=== PATIENT | female | born 1970 | race Caucasian/White ===

== ENCOUNTER 2017-06-06 16:27 | Emergency (ER) | payer OTHER ==
[2017-06-06 16:37] VITALS: BP 144/90; PULSE 78; TEMP 97.9; BMI 27.3
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
[2017-06-06] MEDS ORDERED: KETOROLAC TROMETHAMINE 60 MG/2 ML VIAL IM ONE (17:59)
[2017-06-06] MEDS ORDERED: KETOROLAC TROMETHAMINE 60 MG/2 ML VIAL ONE (18:07)
== END 2017-06-06 19:02 | disposition home or self-care (01) ==
LOC: JERFT 16:27
CPT/HCPCS: 72100-TC; 99281-25

== ENCOUNTER 2017-10-13 13:31 | Emergency (ER) | payer OTHER ==
[2017-10-13 14:06] VITALS: BMI 26.4
--- NOTE | 2017-10-13 15:47 | PDOC ---
History of Present Illness - General Chief Complaint: Pain Stated Complaint: ABD PAIN Time Seen by Provider: 10/13/17 15:42 - History of Present Illness Initial Comments: 10/13/17 15:57 The patient is a 47 year old female who denies any significant PMH who presents for evaluation of epigastric abdominal pain. The patient reports onset of burning epigastric abdominal pain beginning earlier this morning associated with nausea. She states that eating worsens her pain and denies any relieving factors. She denies similar symptoms in the past. She otherwise denies fevers , chills, SOB, chest pain, vomiting, or changes with urination or bowel movements. Past History - Past Medical History Allergies/Adverse Reactions: Allergies Allergy/AdvReac Type Severity Reaction Status Date / Time No Known Allergies Allergy Verified 10/13/17 14:02 Home Medications: Ambulatory Orders Cyclobenzaprine HCl [Flexeril 10 mg] 10 mg PO BID PRN #20 tablet 06/06/17 Naproxen [Naprosyn] 500 mg PO BID #20 tablet 06/06/17 Famotidine [Pepcid -] 40 mg PO DAILY #7 tablet 10/13/17 COPD: No DVT: No - Suicide/Smoking/Psychosocial Hx Smoking History: Never smoked Information on smoking cessation initiated: No Hx Alcohol Use: No Drug/Substance Use Hx: No Substance Use Type: None Review of Systems - Review of Systems Comments:: 10/13/17 15:59 Constitutional: No fevers, chills, fatigue, malaise HEENT: No Rhinorrhea, nasal congestion, visual changes Cardiovascular: No chest pain, syncope, palpitations, lightheadedness Respiratory: No Cough, SOB, Hemoptysis, Gastrointestinal: Abdominal pain, Nausea. No Vomiting, Constipation, Diarrhea, Melena Genitourinary: No Dysuria, Frequency, Urgency, Hesitancy, Hematuria, Flank pain Musculoskeletal: No Myalgia, arthralgia Skin: No rashes, itching, bruising, pallor Neurologic: No Headache, Dizziness, Numbness, Weakness, or Tingling Psychiatric: No Hallucinations. No SI or HI *Physical Exam - Vital Signs Last Vital Signs Temp Pulse Resp BP Pulse Ox 98.6 F 81 18 131/79 100 10/13/17 14:02 10/13/17 14:02 10/13/17 14:02 10/13/17 14:02 10/13/17 14:02 - Physical Exam Comments: 10/13/17 16:00 General Appearance: Nourished. No Apparent Distress HEENT: EOMI, COLLINS. No Pharyngeal Erythema, Tonsillar Exudate, Tonsillar Erythema Neck: No Cervical Lymphadenopathy Respiratory/Chest: Lungs Clear, Normal Breath Sounds. No Crackles, Rales, Rhonchi, Wheezing Cardiovascular: Regular Rhythm, Regular Rate. No Murmur, Gallops, Rubs Gastrointestinal/Abdominal: Normal Bowel Sounds, Soft. Mild tenderness to palpation to deep palpation in the epigastric region. No Guarding, Rebound, Musculoskeletal: No CVA Tenderness Extremity: Normal Capillary Refill Integumentary: Normal Color, Dry, Warm Neurologic: Fully Oriented, Alert, Normal Mood/Affect, Normal Response, ED Treatment Course - LABORATORY CBC & Chemistry Diagram: 10/13/17 16:30 10/13/17 16:30 Medical Decision Making - Medical Decision Making 10/13/17 16:00 The patient is a 47 year old female who denies any significant PMH who presents for evaluation of epigastric abdominal pain. Differential includes but is not limited to: Gastritis, GERD, Pancreatitis, Cholecysitis, infectious, metabolic derangement. Given the patient's history and physical exam, it is likely the patient's symptoms are due to a gastritis. However, we will obtain a cbc, cmp, lipase, ua, urine preg, and gallbladder US to evaluate further for possible etiologies. We will treat in the meantime with iv fluids, pepcid, zofran, maalox. We will continue to monitor and reassess. 10/13/17 18:20 cbc, ua, urine preg is unremarkable. Gallbladder US demonstrates some gallbladder wall thickening possibly due to gallbladder contraction without any gallstones noted on the exam as read by our radiologist. CMP and Lipase have hemolized and will be redrawn. The patient reports some improvement in her symptoms with treatment. *DC/Admit/Observation/Transfer Diagnosis at time of Disposition: Abdominal pain Qualifiers: Abdominal location: unspecified location Qualified Code(s): R10.9 - Unspecified abdominal pain - Discharge Dispostion Admit: No - Prescriptions Prescriptions: Famotidine [Pepcid -] 40 mg PO DAILY #7 tablet - Referrals Referrals: Efren Boswell MD [Staff Physician] - - Patient Instructions Printed Discharge Instructions: DI for Gastritis Additional Instructions: Please return to the ER if you experience concerning or worsening symptoms including worsening abdominal pain, fevers, vomiting, or if you feel ill. Your lab results were normal here in the ER. Your Gallbladder US was unremarkable. We have sent a prescription for an anti-acid mediation to your pharmacy that you should take as directed. It is EXTREMELY important that you call to schedule a follow up appointment with our GI specialist Dr. Boswell within 2-3 days to discuss your ER visit and further management of your symptoms. - Post Discharge Activity
[2017-10-13] MEDS ORDERED: MAG HYDROX/AL HYDROX/SIMETH 30 ML UNIT-DOSE CUP PO ONE (15:56)
[2017-10-13] MEDS ORDERED: FAMOTIDINE 20 MG/50 ML IVPB 20 MG/50 ML MG IVPB ONE ×2 (15:56→16:13)
[2017-10-13] MEDS ORDERED: ONDANSETRON 4 MG/2 ML VIAL IVPUSH ONE (15:56)
[2017-10-13] MEDS ORDERED: SODIUM CHLORIDE 1,000 ML IV STA (15:56)
[2017-10-13] MEDS ORDERED: MAG HYDROX/AL HYDROX/SIMETH 30 ML UNIT-DOSE CUP ONE (16:12)
[2017-10-13] MEDS ORDERED: ONDANSETRON 4 MG/2 ML VIAL ONE (16:12)
--- NOTE | 2017-10-13 16:32 | PDOC ---
Attending Attestation - Resident Resident Name: Jesus Alberto Antoine - ED Attending Attestation I have performed the following: I have examined & evaluated the patient, The case was reviewed & discussed with the resident, I agree w/resident's findings & plan, Exceptions are as noted - Medical Decision Making 10/13/17 16:31 47-year-old female with no significant past medical history presents emergency Department with epigastric pain since this morning. Vitals unremarkable. Differential includes but is not limited to pancreatitis versus cholecystitis versus gastritis.Plan: -labs -UA -UPT -pain control -antiemetics -US -reassess <Nassef,Yomna - Last Filed: 10/13/17 16:30> - HPI HPI: 10/13/17 17:16 Pt is a 47 yo F with no PMHx who presents to the ED with with epigastric pain since this morning. Patient reports gradual onset of burning epigastric pain, 8/ 10 in severity associated with nausea. Patient reports eating exacerbates her pain. Patient denies any previous episodes in the past and presents to the ED for further evaluation. Denies CP, SOB, f/c. diarrhea, weakness/numbness, headache. PCP: None - Physicial Exam PE: 10/13/17 17:16 GENERAL: Awake, alert, and fully oriented, in no acute distress HEAD: No signs of trauma EYES: PERRLA, EOMI, sclera anicteric, conjunctiva clear ENT: Auricles normal inspection, hearing grossly normal, nares patent, oropharynx clear without exudates. Moist mucosa NECK: Normal ROM, supple, no lymphadenopathy, JVD, or masses LUNGS: Breath sounds equal, clear to auscultation bilaterally. No wheezes, and no crackles HEART: Regular rate and rhythm, normal S1 and S2, no murmurs, rubs or gallops ABDOMEN: Soft, +epigastric ttp, negtatve mendez sign, normoactive bowel sounds. No guarding, no rebound. No masses EXTREMITIES: Normal range of motion, no edema. No clubbing or cyanosis. No cords, erythema, or tenderness BACK: No midline spinal tenderness in cervical/thoracic/lumbar region NEUROLOGICAL: Normal speech, cranial nerves intact, negative pronator drift, 5/ 5 strength in all 4 extremities, normal sensation to light touch in all 4 extremities, normal cerebellar exam, normal gait, normal reflexes and tone SKIN: Warm, Dry, normal turgor, no rashes or lesions noted. - Medical Decision Making 10/13/17 17:16 Documentation prepared by Iesha Granda, acting as medical billing service for Esther Pratt MD <Iesha Granda - Last Filed: 10/13/17 17:16>
[2017-10-13 16:36] LABS: BASO % 1.1 % (0-2.0); EOS % 0.8 % (0-4.5); HEMOGLOBIN 15.3 GM/dL (10.7-15.3); LYMPH % 30.5 % (8-40); MCH 31.7 pg (25.7-33.7); MCHC 35.7 g/dl (32.0-36.0); MEAN CELL VOLUME 88.9 fl (80-96); MONO % 7.5 % (3.8-10.2); NEUT % 60.1 % (42.8-82.8); PLATELET COUNT 271 K/MM3 (134-434); RBC 4.84 M/mm3 (3.60-5.2); RDW 12.7 % (11.6-15.6); WHITE BLOOD COUNT 8.8 K/mm3 (4.0-10.0)
[2017-10-13 16:53] LABS: HCG,QUALITATIVE URINE NEGATIVE
[2017-10-13 16:55] LABS: URINE APPEARANCE CLEAR; URINE BILIRUBIN NEGATIVE (<2.0 mg/dL); URINE COLOR LTYELLOW; URINE GLUCOSE (UA) NEGATIVE (NEGATIVE); URINE KETONE NEGATIVE (NEGATIVE); URINE LEUK ESTERASE NEGATIVE (NEGATIVE); URINE NITRITE NEGATIVE (NEGATIVE); URINE PROTEIN NEGATIVE (NEGATIVE); URINE UROBILINOGEN NEGATIVE mg/dL (0.2-1.0)
[2017-10-13 17:14] LABS: EPI CELLS RARE /HPF (FEW)
[2017-10-13 19:33] LABS: ANION GAP 6 (8-16); BLOOD UREA NITROGEN 7 mg/dL (7-18); CALCIUM 8.8 mg/dL (8.5-10.1); CHLORIDE 105 mmol/L (98-107); CO2 28 mmol/L (21-32); CREATININE 0.6 mg/dL (0.55-1.02); GLUCOSE,RANDOM 112 mg/dL (74-106); LIPASE 118 U/L (73-393); SGPT/ALT 33 U/L (12-78); SODIUM 139 mmol/L (136-145)
[2017-10-13 19:35] LABS: ALK PHOS 155 U/L (45-117); BILIRUBIN,TOTAL 0.4 mg/dL (0.2-1.0); TOT PROT 8.1 g/dl (6.4-8.2)
[2017-10-13 19:51] LABS: POTASSIUM 4.1 mmol/L (3.5-5.1); SGOT/AST 23 U/L (15-37)
[2017-10-13 20:27] VITALS: TEMP 98.1
--- NOTE | 2017-10-13 20:43 | PDOC ---
*Physical Exam - Vital Signs Last Vital Signs Temp Pulse Resp BP Pulse Ox 98.1 F 78 20 126/72 100 10/13/17 19:30 10/13/17 19:30 10/13/17 19:30 10/13/17 19:30 10/13/17 19:30 ED Treatment Course - LABORATORY CBC & Chemistry Diagram: 10/13/17 16:30 10/13/17 18:36 - ADDITIONAL ORDERS Additional order review: Laboratory Results 10/13/17 10/13/17 10/13/17 18:36 16:40 16:30 Sodium 139 Cancelled Potassium 4.1 Cancelled Chloride 105 Cancelled Carbon Dioxide 28 Cancelled Anion Gap 6 L Cancelled BUN 7 Cancelled Creatinine 0.6 Cancelled Creat Clearance w eGFR > 60 Cancelled Random Glucose 112 H Cancelled Calcium 8.8 Cancelled Total Bilirubin 0.4 Cancelled AST 23 Cancelled ALT 33 Cancelled Alkaline Phosphatase 155 H Cancelled Total Protein 8.1 Cancelled Albumin 4.0 Cancelled Lipase 118 Cancelled Urine Color Ltyellow Urine Appearance Clear Urine pH 6.0 Ur Specific [place] 1.011 Urine Protein Negative Urine Glucose (UA) Negative Urine Ketones Negative Urine Blood 1+ H Urine Nitrite Negative Urine Bilirubin Negative Urine Urobilinogen Negative Ur Leukocyte Esterase Negative Urine WBC (Auto) 1 Urine RBC (Auto) 1 Ur Epithelial Cells Rare Urine HCG, Qual Negative 10/13/17 16:30 RBC 4.84 MCV 88.9 MCHC 35.7 RDW 12.7 MPV 8.0 Neutrophils % 60.1 Lymphocytes % 30.5 Monocytes % 7.5 Eosinophils % 0.8 Basophils % 1.1 - Medications Given in the ED: ED Medications Discontinued Medications Generic Name Dose Route Start Last Admin Trade Name Freq PRN Reason Stop Dose Admin Al Hydroxide/Mg Hydroxide 30 ml 10/13/17 15:56 10/13/17 16:30 Mylanta Oral Suspension - PO 10/13/17 15:57 30 ml ONCE ONE Administration Famotidine/Sodium Chloride 20 mg in 50 mls @ 100 mls/hr 10/13/17 15:56 16:30 Pepcid 20 Mg Premixed Ivpb - IVPB 10/13/17 16:25 100 mls/hr ONCE ONE Administration Sodium Chloride 1,000 mls @ 1,000 mls/hr 10/13/17 15:56 10/13/17 16:30 Normal Saline - IV 10/13/17 16:55 1,000 mls/hr ASDIR STA Administration Ondansetron HCl 4 mg 10/13/17 15:56 10/13/17 16:30 Zofran Injection IVPUSH 10/13/17 15:57 4 mg ONCE ONE Administration *DC/Admit/Observation/Transfer Diagnosis at time of Disposition: Abdominal pain Qualifiers: Abdominal location: unspecified location Qualified Code(s): R10.9 - Unspecified abdominal pain - Discharge Dispostion Disposition: HOME Condition at time of disposition: Improved Admit: No - Prescriptions Prescriptions: Famotidine [Pepcid -] 40 mg PO DAILY #7 tablet - Referrals Referrals: Efren Boswell MD [Staff Physician] - - Patient Instructions Printed Discharge Instructions: DI for Gastritis Additional Instructions: Please return to the ER if you experience concerning or worsening symptoms including worsening abdominal pain, fevers, vomiting, or if you feel ill. Your lab results were normal here in the ER. Your Gallbladder US was unremarkable. We have sent a prescription for an anti-acid mediation to your pharmacy that you should take as directed. It is EXTREMELY important that you call to schedule a follow up appointment with our GI specialist Dr. Boswell within 2-3 days to discuss your ER visit and further management of your symptoms. Print Language: LAO - Post Discharge Activity
[2017-10-13 21:02] VITALS: BP 128/76; PULSE 82
--- NOTE | 2017-10-15 10:35 | EKG ---
Test Reason : Blood Pressure : / mmHG Vent. Rate : 108 BPM Atrial Rate : 108 BPM P-R Int : 160 ms QRS Dur : 078 ms QT Int : 354 ms P-R-T Axes : 047 043 011 degrees QTc Int : 474 ms SINUS TACHYCARDIA NONSPECIFIC T WAVE ABNORMALITY ABNORMAL ECG WHEN COMPARED WITH ECG OF 25-NOV-2004 16:54, NONSPECIFIC T WAVE ABNORMALITY, WORSE IN ANTERIOR LEADS QT HAS LENGTHENED Confirmed by MARINA DOMINGO, RUTH ANN ([id number]) on 10/15/2017 10:35:21 AM Referred By: Confirmed By:RUTH ANN GRAY MD
== END 2017-10-13 21:01 | disposition home or self-care (01) ==
LOC: JER 13:31
PROC: 3E033GC Introduction of Other Therapeutic Substance into Peripheral Vein, Percutaneous Approach (ICD-10-PCS; principal; 2017-10-13)
PROC: 3E033GC Introduction of Other Therapeutic Substance into Peripheral Vein, Percutaneous Approach (ICD-10-PCS; 2017-10-13)
DX: K29.70 Gastritis, unspecified, without bleeding (principal)
CPT/HCPCS: 36415; 76705-TC; 80053; 81003; 81015; 83690; 84703; 85025; 93005; 93010; 96365; 96375; 99283-25; J7030

== ENCOUNTER 2019-12-27 08:33 | Day surgery (SDC) | payer OTHER ==
[2019-12-20 14:25] VITALS: BMI 23.3
--- NOTE | 2019-12-27 08:52 | HP ---
History & Physical Update - History History: No Change - Physical Physical: No Change - Assessment Assessment: No Change - Plan Plan: No Change
[2019-12-27] MEDS ORDERED: MIDAZOLAM HCL 2 MG/2 ML SINGLE DOSE VIAL ONE (09:58)
[2019-12-27] MEDS ORDERED: ROPIVACAINE HCL 0.5% 30ML VIAL ONE ×2 (09:58→10:01)
[2019-12-27] MEDS ORDERED: EPINEPHrine/PF 1 MG/1 ML (1:1,000) AMPULE ONE (10:01)
[2019-12-27] MEDS ORDERED: MORPHINE 5 MG/10 ML AMP - FOR COMPOUNDING USE ONLY ONE (10:03)
[2019-12-27] MEDS ORDERED: BUPIVACAINE HCL/PF 2.5 MG/ML - 30 ML VIAL IJ ONE (10:12)
[2019-12-27] MEDS ORDERED: PROPOFOL 20 ML ONE (10:34)
[2019-12-27] MEDS ORDERED: ONDANSETRON 4 MG/2 ML VIAL ONE (10:36)
[2019-12-27] MEDS ORDERED: KETOROLAC TROMETHAMINE 30 MG/1 ML VIAL ONE (10:36)
[2019-12-27] MEDS ORDERED: ceFAZolin SODIUM 1 GM VIAL ONE (10:36)
[2019-12-27] MEDS ORDERED: DEXAMETHASONE SOD PHOSPHATE 4 MG/1 ML VIAL ONE (10:36)
[2019-12-27] MEDS ORDERED: LABETALOL HCL 5 MG/1 ML (100MG/20 ML VIAL) ONE (11:29)
[2019-12-27] MEDS ORDERED: oxyCODONE HCL 5 MG TABLET PO PRN ×3 (12:31→13:08)
--- NOTE | 2019-12-27 13:22 | OPR ---
Date of Procedure: 12/27/2019 Procedure: Right Shoulder- 1. Diagnostic arthroscopy. 2. Arthroscopic limited debridement of glenohumeral joint (49284). 3. Arthroscopic subacromial decompression (55531). 4. Arthroscopic-assisted biceps tenodesis-subpectoral (12275). Preoperative Diagnoses: Right Shoulder- 1. Rotator cuff partial tear-Supraspinatus. 2. Biceps tendon degeneration. 3. Glenohumeral synovitis. 4. Subacromial bursitis. Postoperative Diagnoses: Right Shoulder- 1. Rotator cuff partial tear-Supraspinatus. 2. Biceps tendon degeneration and tenosynovitis. 3. Glenohumeral synovitis. 4. Subacromial bursitis and adhesions. Surgeon: Loc Esquivel DO Assistants: Denilson Leigh DO Anesthesia: IV regional with interscalene nerve block, Local infiltration an algesic with Bupivacaine. Estimated Blood Loss: Minimal Drains: None Total IV Fluids: Per anesthesia record Specimens: None Implants: [employer] 1.9mm SutureFix [place], Double loaded with Suture Complications: None Disposition: PACU Condition: Hemodynamically stable Indications: Jair Kamara presented to us with chronic right shoulder pain that failed conservative measures. Her symptoms, signs, and imaging were consistent with the above noted diagnoses. She ultimately elected to proceed with surgical intervention after discussion of the risks, benefits, alternatives. We discussed risks including but not limited to, bleeding, pain, infection, scarring, damage to neurovascular structures, blood clots, pulmonary embolus, need for additional surgery, incomplete relief of pain, and incomplete return of function. She expressed understanding and wished to proceed. She underwent preoperative medical evaluation clearance and optimization prior to surgery. Procedure Details: She was identified in the preoperative area. The right shoulder was marked as the operative site and consent was completed and confirmed. An interscalene b lock was performed in the preoperative holding area by a member of the anesthesia team. She was later transferred to the operating room and placed in supine position the operating room. Anesthesia was induced without difficulty. She was repositioned into beach chair with all bony prominences appropriately padded. The neck was in neutral alignment. A surgical time-out was performed identifying the correct patient, procedure, and site. Antibiotics were given within 1 hour prior to surgical incision. The upper extremity was prepped and draped in standard sterile fashion. Examination under anesthesia: Passive range of motion of the right shoulder showed forward elevation of 170, abduction 100, external rotation at side 60, SABER 90, SABIR 40. This was compared to her contralateral shoulder which shows forward elevation of 170, abduction 100 external rotation at side 40, SABER 90, SABIR 40, and internal rotation to her mid thoracic spine. Diagnostic arthroscopy: We began the procedure with the standard posterolateral portal, entered the glenohumeral joint, and an anterior portal was made within the rotator cuff interval under direct visualization with the assistance of a spinal needle. A probe was used to assist with diagnostic arthroscopy and we visualized from both posteriorly and anteriorly. Evaluation of the glenohumeral joint showed mild to moderate synovitis anteriorly and superiorly. The superior labrum was probed and found to be intact. The anterior labrum was probed and found to be intact. The posterior labrum was probed and found to be intact. There were no loose bodies in the inferior pouch. There was no HAGL lesion. The biceps tendon showed hyperemia. The rotator cuff interval showed hyperemia. The axillary recess was empty. The subscapularis was probed and found to be intact. The articular surface of the supraspinatus was intact. The articular surface of the infraspinatus and teres minor tendons were intact. The glenoid and humeral head showed no significant chondral defects. We used a combination of the arthroscopic motorized shaver and radiofrequency device to perform an debridement inside the glenohumeral joint anteriorly. The hyperemia, erythema, and synovitis of the joint and joint capsule was debrided. Synovitic fronds were thermally ablated. The biceps tendon was tenotomized as it inserted into the superior labral complex and the remaining portion of the biceps tendon was allowed to retract into the bicipital groove for later tenodesis. Evaluation of the subacromial space showed moderate bursitis and adhesions. T here was an acromial spur anteriorly. There was fraying of the CA ligament. The AC joint was intact. The bursal surface of the supraspinatus was found to be frayed, and this fraying involved less than 25% of the tendon. Arthroscopic-assisted biceps tenodesis: We made a 2 cm incision along Jennie's lines in the axillary fold. Sharp dissection was carried out down to the level of the pectoralis major. The plane between the pectoralis major and the short head of biceps tendon was developed bluntly down to the level of the humeral bone, where we identified the long head of biceps tendon and delivered it retrograde out of the wound. The underlying soft tissue was resected and the bone was frayed with a 1/4-inch osteotome. We then selected a 1.9 SutureFix anchor and placed the anchor high within the bicipital groove underneath the pectoralis major tendon. The sutures were then passed just proximal to the musculotendinous junction of the long head of biceps in an alternating simple versus lasso loop configuration. Tying these sutures down tenodesed the tendon onto the underlying frayed humeral bone. We used an arthroscopic knot pusher to get excellent knot fixation, and then arthroscopic handkerchief cutter to cut the remaining length of the suture. The remaining length of the biceps tendon was resected. We confirmed our arthroscopic knots and position of the biceps tendon underneath the pectoralis major with the arthroscope. We thoroughly irrigated the wound. Arthroscopic subacromial decompression:The subacromial space was entered from posteriorly. A separate anterior-lateral portal was made for additional instrumentation and visualization. We then visualized the rotator cuff fraying as noted above, and performed our subacromial decompression in a systematic fashion from anterior to posterior and from lateral to medial, removing the bursal tissue carefully. This was done with a radiofrequency device and motorized shaver. The undersurface of the acromion was skeletonized and gently debrided to a flat smooth undersurface. There was a significant anterior inferior acromial spur that was resected. The frayed rotator cuff was debrided back to a stable base. We promoted some localized bone bleeding and marrow elements with a 1.6mm k wire in the lateral aspect of the greater tuberosity. We thoroughly irrigated the subacromial space and we removed the arthroscopic equipment. Wound closure: The wounds were thoroughly irrigated. The arthroscopic portal incisions were closed with 3-0 Monocryl subcuticular stitch with Steri strips. The axillary incision was closed with 2-0 Vicryl, 3-0 Monocryl subcuticular stitch, and Dermabond skin glue. The shoulder was sterilely dressed and placed in a shoulder immobilizer. Post-operative Details: I spoke with the family regarding the operation after surgery. Postoperative rehabilitation: Arthroscopic biceps tenodesis protocol. She will remain in a sling for 4-6 weeks. Early passive range of motion okay with no limits. Attestation for library assistant: Dr. Denilson Leigh acted as the library assistant. There was no qualified resident or physician itinerant teacher assistant available to do so. I was present for surgical time out and all faith and critical portions of the case.
[2019-12-27 13:24] VITALS: TEMP 97.5
[2019-12-27 14:59] VITALS: PULSE 65
[2019-12-27 15:02] VITALS: BP 135/72
== END 2019-12-27 14:35 | disposition home or self-care (01) ==
LOC: FASU 08:33
PROVIDERS: ATTEND Orthopaedic Surgery
PROC: 0LS30ZZ Reposition Right Upper Arm Tendon, Open Approach (ICD-10-PCS; 2019-12-27)
PROC: 0RBJ4ZZ Excision of Right Shoulder Joint, Percutaneous Endoscopic Approach (ICD-10-PCS; principal; 2019-12-27 10:58)
DX: M75.111 Incomplete rotator cuff tear or rupture of right shoulder, not specified as traumatic (principal); M67.813 Other specified disorders of tendon, right shoulder; M65.811 Other synovitis and tenosynovitis, right shoulder; M75.51 Bursitis of right shoulder
CPT/HCPCS: 84703

== ENCOUNTER 2022-05-24 02:38 | Emergency (ER) | payer OTHER ==
[2022-05-24 03:00] VITALS: BP 150/88; PULSE 74; RESP 20; TEMP 97.8; BMI 26.0
[2022-05-24] MEDS ORDERED: ACETAMINOPHEN 1000 MG/100 ML BAG IVPB ONE (04:52)
[2022-05-24] MEDS ORDERED: ONDANSETRON 4 MG/2 ML VIAL IVPUSH ONE (04:52)
[2022-05-24] MEDS ORDERED: ONDANSETRON *ODT* 4 MG TABLET ONE (04:56)
[2022-05-24] MEDS ORDERED: ACETAMINOPHEN 325 MG TABLET (FP) ONE (04:56)
[2022-05-24] MEDS ORDERED: ACETAMINOPHEN 500 MG TABLET (FP) PO ONE (05:13)
[2022-05-24] MEDS ORDERED: ONDANSETRON *ODT* 4 MG TABLET SL ONE (05:13)
== END 2022-05-24 06:17 | disposition home or self-care (01) ==
LOC: JER 02:38
DX: J11.1 Influenza due to unidentified influenza virus with other respiratory manifestations (principal)
CPT/HCPCS: 0241U-QW; 99283-25; Q0162